=== PATIENT | female | born 2000 | race African-American/Black ===

== ENCOUNTER 2023-04-08 13:20 | Emergency (ER) | payer MEDICAID ==
[~2023-04-08] VITALS: Ht 170.2 cm; Wt 98.8 kg
[2023-04-08 13:38] VITALS: BP 137/77; PULSE 79; TEMP 96.8; O2SAT 99
[2023-04-08] MEDS ORDERED: ketorolac trometh inj. 60 MG/2 ML VIAL IM ONE (14:45)
[2023-04-08 14:58] VITALS: RESP 17
[2023-04-08 16:06] LABS: PREOP URINE HCG NEGATIVE (NEGATIVE)
[2023-04-08 16:21] LABS: BILIRUBIN,URINE NEGATIVE (Neg); COLOR,URINE YELLOW (Yellow); GLUCOSE, URINE NEGATIVE (Neg); KETONES,URINE NEGATIVE (Neg); LEUKOCYTE ESTERASE ,URINE NEGATIVE (Neg); NITRITES, URINE NEGATIVE (Neg); OCCULT BLOOD,URINE NEGATIVE (Neg); PH,URINE 6.5 (4.8-8.0); PROTEIN,URINE NEGATIVE (Neg)
[2023-04-08 16:25] LABS: CLARITY,URINE SLIGHTLY CLOUDY (Clear); UA COLLECTION TYPE CLN CATCH MIDSTREAM
[2023-04-08 16:28] LABS: BACTERIA,URINE FEW /HPF (Neg); MUCUS STRANDS NONE SEEN /LPF (Neg); RBC,URINE 0-2 /HPF (0-2); SQUAMOUS EPITHELIAL CELL,UR MANY /LPF (FEW)
== END 2023-04-08 16:47 | disposition home or self-care (01) ==
LOC: ER 13:21
DX: S39.012A Strain of muscle, fascia and tendon of lower back, initial encounter (principal); X58.XXXA Exposure to other specified factors, initial encounter; Y93.89 Activity, other specified; Y92.89 Other specified places as the place of occurrence of the external cause; Y99.8 Other external cause status
CPT/HCPCS: 72100; 81001; 81025; 96372; 99284; J1885